=== PATIENT | female | born 1940 | race Caucasian/White ===

== ENCOUNTER 2019-04-27 09:09 | Day surgery (SDC) | payer MEDICARE, BC ==
[~2019-04-27 09:09] MED LIST: Lactated Ringers 1,000 ML IV PRN; Sodium Chloride 0.9% 10 ML Syringe FLUSH PRN
[2019-04-27] MEDS ORDERED: Midazolam 1 MG/ML 2 ML SDV IV ONE (09:10)
[2019-04-27] MEDS ORDERED: acetaZOLAMIDE 500 MG Cap.ER PO ONE (11:30)
--- NOTE | 2019-04-27 13:05 | OR ---
DATE OF OPERATION: 04/27/2019 SURGEON: Violetta Mon MD PREOPERATIVE DIAGNOSIS: Visually significant cataract, left eye. POSTOPERATIVE DIAGNOSIS: Visually significant cataract, left eye. PROCEDURES PERFORMED: Phacoemulsification with intraocular lens placement, left eye. ASSISTANTS: None. ANESTHESIA: Local with sedation. COMPLICATIONS: None. BLOOD LOSS: None. IMPLANTS: Chato PanOptix toric IOL, model TFNT30, 20.5 diopter lens implanted. CDE: 2.58. DESCRIPTION OF PROCEDURE: After risks and benefits were reviewed with the patient, consent was obtained in the preoperative area, and the operative eye was marked with a surgical pen. In the preoperative area, a pledget was used to dilate the pupil consisting of a mixture of phenylephrine 10%, cyclopentolate 2%, moxifloxacin 0.5%, and bupivacaine 0.75%. The patient was taken to the operating room, where a time-out was performed, and the patient was placed under monitored anesthesia care. Topical tetracaine was used for anesthesia. The operative eye was prepped and draped for ophthalmic surgery, and the microscope was brought into position and focussed. A paracentesis incision was made, followed by injection of preservative-free 1% lidocaine into the anterior chamber, followed by injection of Viscoat into the anterior chamber. A microkeratome blade was used to make a corneal limbal incision temporarily. A cystotome was used to make the beginning of the capsulorrhexis, which was carried around 360 degrees in a curvilinear fashion using Utrata forceps. A Villatoro cannula with BSS was used to hydrodissect and hydrodelineate the nucleus. The nucleus was removed in a divide and conquer manner using phacoemulsification. Irrigation and aspiration were used to remove the remaining cortical material. Provisc was used to inflate the capsular bag, and a pre-loaded Chat[employer] PanOptix toric IOL, model TFNT30, 20.5 diopter lens, serial number [id number] was injected into the capsular bag. A Sinskey hook was used to position and center the lens. Next, irrigation and aspiration was used to remove any remaining viscoelastic and cortical material from the anterior chamber. BSS on a cannula was used to inflate the anterior chamber and hydrate the wound. The wound was checked and found to be watertight. 1 mg of Moxifloxacin was injected into the anterior chamber. Drapes were removed and the eye was cleaned. A drop of brimonidine 0.15% and a drop of TobraDex was placed. The eye was shielded, and the patient was taken to the recovery room in stable condition. /[id number] 1125 1200 BEULAH/MANISHA CC: BULMARO PURI NP
[2019-04-27 14:19] VITALS: BP 131/55; PULSE 68
== END 2019-04-27 12:05 | disposition home or self-care (01) ==
LOC: FB.SDS 09:09
PROVIDERS: ATTEND Ophthalmology
DX: H25.812 Combined forms of age-related cataract, left eye (principal); H02.886 Meibomian gland dysfunction of left eye, unspecified eyelid; H02.883 Meibomian gland dysfunction of right eye, unspecified eyelid; H02.411 Mechanical ptosis of right eyelid; D31.31 Benign neoplasm of right choroid; H43.811 Vitreous degeneration, right eye; H52.03 Hypermetropia, bilateral; I10 Essential (primary) hypertension; E03.9 Hypothyroidism, unspecified; E66.9 Obesity, unspecified; J45.909 Unspecified asthma, uncomplicated; K21.9 Gastro-esophageal reflux disease without esophagitis; M17.11 Unilateral primary osteoarthritis, right knee; Z88.2 Allergy status to sulfonamides; Z88.5 Allergy status to narcotic agent; Z88.8 Allergy status to other drugs, medicaments and biological substances; Z68.32 Body mass index [BMI] 32.0-32.9, adult; Z98.41 Cataract extraction status, right eye; Z96.1 Presence of intraocular lens; Z79.51 Long term (current) use of inhaled steroids; Z79.52 Long term (current) use of systemic steroids; Z79.899 Other long term (current) drug therapy
CPT/HCPCS: 00142-QZ; A9270-GY; J2250

== ENCOUNTER 2020-03-24 06:54 | Day surgery (SDC) | payer MEDICARE, BC ==
[~2020-03-24 06:54] MED LIST changes: -Lactated Ringers 1,000 ML IV PRN; +Lactated Ringers 1,000 ML IV SCH
[2020-03-24] MEDS ORDERED: Propofol 200 MG/20 ML SDV IV ONE (06:55)
[2020-03-24 07:29] VITALS: PULSE 69
--- NOTE | 2020-03-24 08:18 | PCM.OPNOTE ---
- General Post-Op/Procedure Note Date of Surgery/Procedure: 03/24/20 Operative Procedure(s): c scope Findings: sigmoid diverticulosis internal hemorrhoids Pre Op Diagnosis: personal hx of colon polyps. sigmoid diverticulosis and hemorrhoids Post-Op Diagnosis: sigmoid diverticulosis. internal hemorrhoids Anesthesia Technique: MAC Primary Surgeon: Deandre Pritchard Anesthesia Provider: Cristiane Moffett Pathology: none Complications: None Condition: Good Free Text/Narrative:: see dictation [id number]
[2020-03-24 10:02] VITALS: BP 123/50
--- NOTE | 2020-03-24 12:22 | OR ---
DATE OF OPERATION: 03/24/2020 SURGEON: Deandre Pritchard MD PROCEDURE PERFORMED: Colonoscopy. PREOPERATIVE DIAGNOSES: Personal history of colon polyps, internal hemorrhoids and diverticulosis. POSTOPERATIVE DIAGNOSES: Sigmoid diverticulosis and internal hemorrhoids. INDICATIONS FOR PROCEDURE: Ms. Au is a 79-year-old white female, who approximately 6 years ago underwent a colonoscopy. She had some polyps removed with some low-grade dysplasia. Followup scope 6 months later was negative. It was recommended that she follow up in 5 years and she presents now. She is currently without complaints. DESCRIPTION OF OPERATION: After an excellent general anesthetic was administered, digital rectal exam was performed. No marked abnormality was noted. The flexible colonoscope was inserted and advanced to the cecum. The prep was excellent. The scope was slowly withdrawn after identifying the cecum by identifying the ileocecal valve as well as the appendiceal orifice and other anatomic structures. The following findings were noted. Ascending colon unremarkable. Transverse colon unremarkable. Descending colon unremarkable. Sigmoid, occasional diverticula noted. Rectum and anus, internal hemorrhoids noted in the right posterior column. The patient tolerated the procedure well. Was taken to Recovery. RECOMMENDATIONS: Repeat colonoscopy in 10 years. /[id number] /MODL
== END 2020-03-24 09:12 | disposition home or self-care (01) ==
LOC: FB.SDS 06:54
PROVIDERS: ATTEND Surgery
DX: K57.30 Diverticulosis of large intestine without perforation or abscess without bleeding (principal); K64.8 Other hemorrhoids; I10 Essential (primary) hypertension; E03.9 Hypothyroidism, unspecified; J45.909 Unspecified asthma, uncomplicated; E66.9 Obesity, unspecified; Z68.31 Body mass index [BMI] 31.0-31.9, adult; Z86.010 Personal history of colon polyps; Z79.899 Other long term (current) drug therapy; Z88.8 Allergy status to other drugs, medicaments and biological substances; Z88.2 Allergy status to sulfonamides; Z88.5 Allergy status to narcotic agent; Z98.890 Other specified postprocedural states
CPT/HCPCS: 00812-QZ; J2704; J7120

== ENCOUNTER 2021-12-30 18:34 | Emergency (ER) | payer MEDICARE, BC ==
[2021-12-30] MEDS ORDERED: Aspirin 81 MG Tab.Chew PO STA (19:03)
[2021-12-30] MEDS ORDERED: Nitroglycerin 0.4 MG Tab.SL SL ONE (19:03)
[2021-12-30 19:26] LABS: ESTIMATED GFR 65 mL/min (>60)
[2021-12-31 01:08] VITALS: BP 133/70; PULSE 85
== END 2021-12-30 21:05 | disposition home or self-care (01) ==
LOC: FB.ED 18:34
DX: R07.9 Chest pain, unspecified (principal); E03.9 Hypothyroidism, unspecified; K21.9 Gastro-esophageal reflux disease without esophagitis; Z88.2 Allergy status to sulfonamides; Z88.5 Allergy status to narcotic agent; Z88.8 Allergy status to other drugs, medicaments and biological substances; Z79.899 Other long term (current) drug therapy
CPT/HCPCS: 36415; 71045; 80053; 84484; 85025; 93005; 93010; 99282; 99285; A9270

== ENCOUNTER 2022-08-18 08:14 | Emergency (ER) | payer MEDICARE, BC ==
[2022-08-18] MEDS: traMADol 50 MG Tab PO ONE (09:01)
[2022-08-18] MEDS: Ondansetron 4 MG Tab.DIS PO ONE (09:02)
[2022-08-18] MEDS: Acetaminophen 325 MG Tab PO ONE (10:59)
[2022-08-18 11:03] VITALS: BP 126/56; PULSE 66
== END 2022-08-18 10:51 | disposition home or self-care (01) ==
LOC: FB.ED 08:14
DX: G89.18 Other acute postprocedural pain (principal); M25.551 Pain in right hip; I10 Essential (primary) hypertension; K21.9 Gastro-esophageal reflux disease without esophagitis; E03.9 Hypothyroidism, unspecified; Z88.2 Allergy status to sulfonamides; Z88.5 Allergy status to narcotic agent; Z88.8 Allergy status to other drugs, medicaments and biological substances; Z79.899 Other long term (current) drug therapy
CPT/HCPCS: 73502; 99284; A9270; Q0162

== ENCOUNTER 2023-01-31 21:14 | Inpatient (IN) | payer MEDICARE, BC ==
[2023-01-31] MEDS ORDERED: Sodium Chloride 0.9% 10 ML Syringe FLUSH PRN (21:36)
[2023-01-31 22:07] LABS: BASOPHILS PERCENT AUTO 0.6 % (0.2-1.5); EOSINOPHILS PERCENT AUTO 0.1 % (0.6-8.1); HEMATOCRIT 36.6 % (34.2-48.2); HEMOGLOBIN 12.4 g/dL (11.4-15.5); LYMPHOCYTES ABSOLUTE AUTO 0.4 x10-3/uL (1.0-4.4); LYMPHOCYTES PERCENT AUTO 7.3 % (18.4-52.1); MEAN CORPUSCULAR HEMOGLOBIN 29.6 pg (23.9-33.9); MEAN CORPUSCULAR HGB CONC 33.8 g/dL (31.9-34.8); MEAN CORPUSCULAR VOLUME 87.7 fL (76.7-100.5); MEAN PLATELET VOLUME 9.3 fL (7.1-12.4); MONOCYTES ABSOLUTE AUTO 0.7 x10-3/uL (0.3-1.0); MONOCYTES PERCENT AUTO 13.3 % (4.4-15.7); NEUTROPHILS ABSOLUTE AUTO 4.2 x10-3/uL (1.5-6.3); NEUTROPHILS PERCENT AUTO 78.7 % (30.8-76.2); PLATELET COUNT,PLT 161 x10(3)uL (151-488); RED BLOOD CELL COUNT 4.18 x10(6)uL (3.60-5.20); RED CELL DISTRIBUTION WIDTH 14.8 % (12.3-16.5); WHITE BLOOD CELL COUNT,WBC 5.3 x10-3/uL (3.0-10.3)
[2023-01-31 22:11] LABS: BLOOD UREA NITROGEN,BUN 16 mg/dL (7-18); BUN/CREATININE RATIO 14.5 (9-20); CALCIUM 8.9 mg/dL (8.6-10.2); CARBON DIOXIDE,CO2 27 mmol/L (21-32); CHLORIDE,CL 104 mmol/L (100-110); CREATININE 1.1 mg/dL (0.55-1.02); EST CRCL DRUG DOSING (CG) 34.64 mL/min; ESTIMATED GFR 50 mL/min (>60); GLUCOSE RANDOM 115 mg/dL (80-116); POTASSIUM,K 3.7 mmol/L (3.5-5.3); SODIUM,NA 138 mmol/L (135-145)
[2023-01-31 22:17] LABS: ALANINE AMINOTRANSFERASE,ALT 22 U/L (12-36); ALBUMIN 3.4 g/dL (3.2-4.6); ALKALINE PHOSPHATASE 96 IU/L (56-112); ASPARTATE AMNIOTRANSFERASE,AST 18 IU/L (5-25); BILIRUBIN TOTAL 0.7 mg/dL (0.1-1.3); PROTEIN TOTAL,TP 6.7 g/dL (6.0-8.0)
[2023-01-31 22:26] LABS: TROPONIN I 6.5 pg/mL (4.0-60.3)
[2023-01-31] MEDS ORDERED: Iopamidol 755 Mg/ML 100 ML Bottle IV SCH (22:45)
[2023-01-31] MEDS ORDERED: Dexamethasone 4 MG/ML 5 ML MDV IVPUSH ONE (22:58)
[2023-01-31] MEDS ORDERED: REMDESIVIR 200 MG in Sodium Chloride 0.9% 250 ML IV ONE (22:58)
[2023-01-31 23:13] LABS: ALBUMIN 3.5 g/dL (3.2-4.6); BILIRUBIN DIRECT 0.2 mg/dL (0.10-0.20); BILIRUBIN TOTAL 0.6 mg/dL (0.1-1.3); PROTEIN TOTAL,TP 6.8 g/dL (6.0-8.0)
[2023-01-31] MEDS ORDERED: Ondansetron 4 MG/2 ML SDV IV PRN (23:30)
[2023-01-31] MEDS ORDERED: Sodium Chloride 0.9% 1,000 ML IV SCH (23:30)
[2023-01-31] MEDS ORDERED: Enoxaparin 80 MG/0.8 ML Syringe SUBCUT SCH (23:30)
[2023-01-31] MEDS ORDERED: Acetaminophen 325 MG Tab PO PRN (23:30)
[2023-02-01] MEDS ORDERED: Albuterol/Ipratropium 3.0-0.5 MG/3 ML Neb Soln NEB PRN (01:52)
[2023-02-01] MEDS ORDERED: Morphine 2 MG/ML SYRINGE IVPUSH ONE ×2 (03:23→04:27)
[2023-02-01] MEDS ORDERED: Furosemide 20 MG/2 ML VIAL IVPUSH ONE (03:30)
[2023-02-01] MEDS ORDERED: Sodium Chloride 0.9% 10 ML Syringe FLUSH PRN (03:37)
[2023-02-01] MEDS ORDERED: Naloxone 0.4 MG/ML SDV IVPUSH PRN (04:27)
[2023-02-01 06:51] LABS: HEMATOCRIT 37.3 % (34.2-48.2); HEMOGLOBIN 12.6 g/dL (11.4-15.5); MEAN CORPUSCULAR HEMOGLOBIN 29.7 pg (23.9-33.9); MEAN CORPUSCULAR HGB CONC 33.8 g/dL (31.9-34.8); MEAN CORPUSCULAR VOLUME 87.8 fL (76.7-100.5); MEAN PLATELET VOLUME 9.4 fL (7.1-12.4); PLATELET COUNT,PLT 173 x10(3)uL (151-488); RED BLOOD CELL COUNT 4.25 x10(6)uL (3.60-5.20); WHITE BLOOD CELL COUNT,WBC 7.7 x10-3/uL (3.0-10.3)
[2023-02-01 06:57] LABS: BLOOD UREA NITROGEN,BUN 17 mg/dL (7-18); BUN/CREATININE RATIO 13.1 (9-20); CALCIUM 8.3 mg/dL (8.6-10.2); CARBON DIOXIDE,CO2 25 mmol/L (21-32); CHLORIDE,CL 104 mmol/L (100-110); CREATININE 1.3 mg/dL (0.55-1.02); EST CRCL DRUG DOSING (CG) 29.31 mL/min; ESTIMATED GFR 41 mL/min (>60); GLUCOSE RANDOM 170 mg/dL (80-116); POTASSIUM,K 3.6 mmol/L (3.5-5.3); SODIUM,NA 140 mmol/L (135-145)
[2023-02-01] MEDS ORDERED: Albuterol/Ipratropium 3.0-0.5 MG/3 ML Neb Soln NEB SCH (07:00)
[2023-02-01 07:22] LABS: BAND PERCENT MAN 18 % (0-6); MONOCYTES PERCENT MAN 5 % (4-12); MYELOCYTE PERCENT MAN 1 % (0-0); SEG NEUTROPHILS PERCENT MAN 76 % (46-82)
[2023-02-01 07:23] LABS: TOXIC GRANULATION MANY (NOT SEEN)
[2023-02-01] MEDS ORDERED: Azithromycin 500 MG in Sodium Chloride 0.9% 250 ML IV SCH (07:30)
[2023-02-01] MEDS ORDERED: cefTRIAXone 2 GM Vial IVPUSH ONE (07:39)
[2023-02-01 08:19] LABS: LACTIC ACID 1.2 mmol/L (0.4-2.0)
[2023-02-01 08:45] LABS: BILIRUBIN,URINE NEGATIVE (NEGATIVE); GLUCOSE,URINE NORMAL (NORMAL); KETONES,URINE NEGATIVE (NEGATIVE); LEUKOCYTE ESTERASE,URINE NEGATIVE (NEGATIVE); NITRITE,URINE NEGATIVE (NEGATIVE); OCCULT BLOOD,URINE MODERATE (NEGATIVE); PROTEIN,URINE TRACE mg/dL (NEGATIVE); UROBILINOGEN,URINE NORMAL (NEGATIVE)
[2023-02-01 08:54] LABS: APPEARANCE,URINE SLIGHTLY CLOUDY (CLEAR); COLOR,URINE YELLOW (YELLOW); WBC,URINE 0-5 (0-5)
[2023-02-01 08:55] LABS: BACTERIA,URINE FEW (NS); COARSE GRANULAR CASTS,URINE OCCASIONAL (NS); SQUAMOUS EPITHELIAL CELLS,UR FEW (NS,R,O)
[2023-02-01 11:45] VITALS: BP 124/47; PULSE 87
== END 2023-02-01 09:25 | DRG 177 ==
LOC: FB.ED 21:14 → FB.MS 23:30
PROVIDERS: ADMIT Family Medicine; ATTEND Student in an Organized Health Care Education/Training Program
PROC: XW033E5 Introduction of Remdesivir Anti-infective into Peripheral Vein, Percutaneous Approach, New Technology Group 5 (ICD-10-PCS; principal; 2023-01-31)
DX: U07.1 COVID-19 (principal); J12.82 Pneumonia due to coronavirus disease 2019; F41.9 Anxiety disorder, unspecified; G31.84 Mild cognitive impairment of uncertain or unknown etiology; E86.0 Dehydration; J45.40 Moderate persistent asthma, uncomplicated; I10 Essential (primary) hypertension; M19.90 Unspecified osteoarthritis, unspecified site; G43.909 Migraine, unspecified, not intractable, without status migrainosus; F32.A Depression, unspecified; E03.9 Hypothyroidism, unspecified; Z96.659 Presence of unspecified artificial knee joint; R09.02 Hypoxemia; D72.825 Bandemia; Z88.2 Allergy status to sulfonamides; Z88.5 Allergy status to narcotic agent; Z88.8 Allergy status to other drugs, medicaments and biological substances; K21.9 Gastro-esophageal reflux disease without esophagitis; Z79.82 Long term (current) use of aspirin; Z86.010 Personal history of colon polyps; Z86.16 Personal history of COVID-19; Z98.49 Cataract extraction status, unspecified eye; Z90.89 Acquired absence of other organs; Z98.890 Other specified postprocedural states; Z79.899 Other long term (current) drug therapy
CPT/HCPCS: 36415; 51702; 71275; 80048; 80053; 80076; 81001; 83605; 83880; 84484; 85025; 86140; 87040; 87086; 93005; 93010; 94640; 99223; 99238; 99285; A9270-GY; J0456; J0696; J1100; J1650; J1940; J2270; J2405; J3490; J7030; J7050; J7620; Q9967

== ENCOUNTER 2023-02-26 14:39 | Observation (INO) | payer MEDICARE, BC ==
[2023-02-26 15:34] LABS: BASOPHILS ABSOLUTE AUTO 0.1 x10-3/uL (0.0-0.1); BASOPHILS PERCENT AUTO 1.2 % (0.2-1.5); EOSINOPHILS ABSOLUTE AUTO 0.3 x10-3/uL (0.0-0.8); EOSINOPHILS PERCENT AUTO 7.4 % (0.6-8.1); HEMATOCRIT 34.2 % (34.2-48.2); HEMOGLOBIN 11.6 g/dL (11.4-15.5); MEAN CORPUSCULAR HEMOGLOBIN 29.2 pg (23.9-33.9); MEAN CORPUSCULAR HGB CONC 33.9 g/dL (31.9-34.8); MEAN PLATELET VOLUME 7.8 fL (7.1-12.4); MONOCYTES ABSOLUTE AUTO 0.9 x10-3/uL (0.3-1.0); MONOCYTES PERCENT AUTO 20.7 % (4.4-15.7); NEUTROPHILS PERCENT AUTO 46.7 % (30.8-76.2); PLATELET COUNT,PLT 422 x10(3)uL (151-488); RED BLOOD CELL COUNT 3.97 x10(6)uL (3.60-5.20); RED CELL DISTRIBUTION WIDTH 14.7 % (12.3-16.5); WHITE BLOOD CELL COUNT,WBC 4.2 x10-3/uL (3.0-10.3)
[2023-02-26 15:40] LABS: BLOOD UREA NITROGEN,BUN 13 mg/dL (7-18); BUN/CREATININE RATIO 14.4 (9-20); CARBON DIOXIDE,CO2 27 mmol/L (21-32); CHLORIDE,CL 105 mmol/L (100-110); CREATININE 0.9 mg/dL (0.55-1.02); EST CRCL DRUG DOSING (CG) 40.55 mL/min; ESTIMATED GFR 64 mL/min (>60); GLUCOSE RANDOM 111 mg/dL (80-116); POTASSIUM,K 3.5 mmol/L (3.5-5.3); SODIUM,NA 138 mmol/L (135-145)
[2023-02-26 15:53] LABS: TROPONIN I 5.1 pg/mL (4.0-60.3)
[2023-02-26 15:56] LABS: A/G RATIO 0.7; ALANINE AMINOTRANSFERASE,ALT 26 U/L (12-36); ALBUMIN 2.6 g/dL (3.2-4.6); ALKALINE PHOSPHATASE 98 IU/L (56-112); ASPARTATE AMNIOTRANSFERASE,AST 18 IU/L (5-25); BILIRUBIN TOTAL 0.4 mg/dL (0.1-1.3); PROTEIN TOTAL,TP 6.5 g/dL (6.0-8.0)
[2023-02-26 15:58] LABS: C-REACTIVE PROTEIN 7.4 mg/dL (<0.33)
[2023-02-26] MEDS ORDERED: Sodium Chloride 0.9% 1,000 ML IV ONE (16:45)
[2023-02-26 18:51] LABS: APPEARANCE,URINE CLEAR (CLEAR); BACTERIA,URINE FEW (NS); BILIRUBIN,URINE NEGATIVE (NEGATIVE); COLOR,URINE YELLOW (YELLOW); GLUCOSE,URINE NORMAL (NORMAL); KETONES,URINE NEGATIVE (NEGATIVE); LEUKOCYTE ESTERASE,URINE NEGATIVE (NEGATIVE); NITRITE,URINE NEGATIVE (NEGATIVE); OCCULT BLOOD,URINE NEGATIVE (NEGATIVE); PROTEIN,URINE NEGATIVE (NEGATIVE); RBC,URINE 0-5 (0-5); SQUAMOUS EPITHELIAL CELLS,UR FEW (NS,R,O); UROBILINOGEN,URINE NORMAL (NEGATIVE); WBC,URINE 0-5 (0-5)
[2023-02-26] MEDS ORDERED: D5 1/2 NS w/ 20 mEq/L KCl 1,000 ML IV SCH (19:45)
[2023-02-26] MEDS ORDERED: Acetaminophen 325 MG Tab PO PRN (20:08)
[2023-02-26] MEDS ORDERED: diphenhydrAMINE 25 MG Cap PO PRN (20:11)
[2023-02-26] MEDS ORDERED: Non-Formulary Medication 1 Each (Acetaminophen [Tylenol Extra Strength] 500 MG Tablet) PO PRN (20:11)
[2023-02-26] MEDS ORDERED: Albuterol 8 GM Inhaler INH PRN (20:11)
[2023-02-26] MEDS ORDERED: Enoxaparin 30 MG/0.3 ML Syringe SUBCUT SCH (20:15)
[2023-02-26] MEDS ORDERED: Dextrose 5%-0.45% NaCl 1,000 ML IV SCH (20:15)
[2023-02-26] MEDS ORDERED: Acetaminophen 500 MG Tab PO PRN (20:39)
[2023-02-26] MEDS ORDERED: Simvastatin 20 MG Tab PO SCH (21:00)
[2023-02-26] MEDS ORDERED: Formoterol/Mometasone 200-5 MCG 8.8 GM Inhaler IH SCH (21:00)
[2023-02-26] MEDS ORDERED: Non-Formulary Medication 1 Each (Fluticasone/Salmeterol [Advair 500-50] 14 PUFF/DISKUS Dis INH SCH (21:00)
[2023-02-26] MEDS ORDERED: Enoxaparin 40 MG/0.4 ML Syringe SUBCUT SCH (21:00)
[2023-02-26] MEDS ORDERED: Metoprolol Succinate 25 MG Tab.ER PO SCH (21:00)
[2023-02-26] MEDS: Vancomycin 125 MG Cap PO SCH (21:20)
[2023-02-26] MEDS: Aspirin 81 MG Tab.EC PO SCH (21:21)
[2023-02-26] MEDS: Formoterol/Mometasone 200-5 MCG 8.8 GM Inhaler IH SCH (21:48)
[2023-02-27] MEDS ORDERED: Levothyroxine 75 MCG Tab PO SCH ×2 (06:00→07:30)
[2023-02-27] MEDS ORDERED: Metoprolol Succinate 25 MG Tab.ER PO SCH (09:00)
[2023-02-27] MEDS ORDERED: Escitalopram 10 MG Tab PO SCH (09:00)
[2023-02-27] MEDS: Formoterol/Mometasone 200-5 MCG 8.8 GM Inhaler IH SCH (09:05)
[2023-02-27] MEDS: Aspirin 81 MG Tab.EC PO SCH (09:06)
[2023-02-27] MEDS: Vancomycin 125 MG Cap PO SCH ×2 (09:07→13:07)
[2023-02-27] MEDS ORDERED: Sodium Chloride 0.9% 1,000 ML IV SCH (09:45)
[2023-02-27 14:25] VITALS: BP 142/73; PULSE 113
[2023-03-01 00:48] LABS: C. DIFF TOXIN B GENE TCDB,PCR Detected
== END 2023-02-27 15:15 | disposition home or self-care (01) ==
LOC: FB.ED 14:39 → FB.MS 20:01
PROVIDERS: ADMIT Family Medicine; ATTEND Family Medicine
DX: A04.72 Enterocolitis due to Clostridium difficile, not specified as recurrent (principal); E86.0 Dehydration; R00.0 Tachycardia, unspecified; I10 Essential (primary) hypertension; R79.82 Elevated C-reactive protein (CRP); E88.09 Other disorders of plasma-protein metabolism, not elsewhere classified; G43.909 Migraine, unspecified, not intractable, without status migrainosus; F32.A Depression, unspecified; K21.9 Gastro-esophageal reflux disease without esophagitis; E03.9 Hypothyroidism, unspecified; Z86.16 Personal history of COVID-19; Z88.2 Allergy status to sulfonamides; Z88.5 Allergy status to narcotic agent; Z88.8 Allergy status to other drugs, medicaments and biological substances; Z79.890 Hormone replacement therapy; Z79.82 Long term (current) use of aspirin; Z79.2 Long term (current) use of antibiotics; Z79.899 Other long term (current) drug therapy
CPT/HCPCS: 36415; 71046; 80053; 81001; 83605; 83880; 84484; 85025; 86140; 87040; 87230; 87493; 93005; A9270; J1650; J3480; J7030; J7042

== ENCOUNTER 2023-05-24 10:56 | Emergency (ER) | payer MEDICARE, BC ==
[2023-05-24 11:12] VITALS: BP 156/70; PULSE 67
[2023-05-24] MEDS ORDERED: Ketorolac 30 MG/ML SDV IM ONE (11:19)
[2023-05-24] MEDS ORDERED: traMADol 50 MG Tab PO STA (11:19)
[2023-05-24] MEDS: Aspirin 81 MG Tab.Chew PO ONE ×2 (11:38→12:38)
[2023-05-24] MEDS ORDERED: Ondansetron 4 MG Tab.DIS PO STA (11:40)
[2023-05-24 11:43] LABS: BASOPHILS PERCENT AUTO 0.9 % (0.2-1.5); EOSINOPHILS ABSOLUTE AUTO 0.1 x10-3/uL (0.0-0.8); EOSINOPHILS PERCENT AUTO 2.7 % (0.6-8.1); HEMATOCRIT 37.3 % (34.2-48.2); HEMOGLOBIN 12.6 g/dL (11.4-15.5); LYMPHOCYTES PERCENT AUTO 19.8 % (18.4-52.1); MEAN CORPUSCULAR HEMOGLOBIN 29.7 pg (23.9-33.9); MEAN CORPUSCULAR HGB CONC 33.8 g/dL (31.9-34.8); MEAN CORPUSCULAR VOLUME 87.8 fL (76.7-100.5); MEAN PLATELET VOLUME 9.3 fL (7.1-12.4); MONOCYTES ABSOLUTE AUTO 0.4 x10-3/uL (0.3-1.0); MONOCYTES PERCENT AUTO 8.7 % (4.4-15.7); NEUTROPHILS ABSOLUTE AUTO 3.5 x10-3/uL (1.5-6.3); NEUTROPHILS PERCENT AUTO 67.9 % (30.8-76.2); PLATELET COUNT,PLT 221 x10(3)uL (151-488); RED BLOOD CELL COUNT 4.24 x10(6)uL (3.60-5.20); RED CELL DISTRIBUTION WIDTH 14.1 % (12.3-16.5); WHITE BLOOD CELL COUNT,WBC 5.1 x10-3/uL (3.0-10.3)
[2023-05-24 11:50] LABS: BLOOD UREA NITROGEN,BUN 26 mg/dL (7-18); CALCIUM 9.5 mg/dL (8.6-10.2); CARBON DIOXIDE,CO2 30 mmol/L (21-32); CHLORIDE,CL 105 mmol/L (100-110); ESTIMATED GFR 57 mL/min (>60); GLUCOSE RANDOM 115 mg/dL (80-116); POTASSIUM,K 4.7 mmol/L (3.5-5.3); SODIUM,NA 142 mmol/L (135-145)
[2023-05-24 11:56] LABS: A/G RATIO 1.2; ALANINE AMINOTRANSFERASE,ALT 24 U/L (12-36); ALBUMIN 3.6 g/dL (3.2-4.6); ALKALINE PHOSPHATASE 98 IU/L (56-112); ASPARTATE AMNIOTRANSFERASE,AST 20 IU/L (5-25); BILIRUBIN TOTAL 0.4 mg/dL (0.1-1.3); PROTEIN TOTAL,TP 6.7 g/dL (6.0-8.0)
[2023-05-24 12:02] LABS: TROPONIN I 5.3 pg/mL (4.0-60.3)
== END 2023-05-24 13:15 | disposition home or self-care (01) ==
LOC: FB.ED 10:56
DX: R07.9 Chest pain, unspecified (principal); I10 Essential (primary) hypertension; J45.909 Unspecified asthma, uncomplicated; E03.9 Hypothyroidism, unspecified; Z79.82 Long term (current) use of aspirin; Z79.899 Other long term (current) drug therapy; Z88.1 Allergy status to other antibiotic agents; Z88.2 Allergy status to sulfonamides; Z88.5 Allergy status to narcotic agent; Z88.8 Allergy status to other drugs, medicaments and biological substances
CPT/HCPCS: 36415; 71045; 80053; 83880; 84484; 85025; 93005; 93010; 96372; 99283; 99285; A9270-GY; J1885; Q0162